=== PATIENT | male | born 1965 | race Caucasian/White ===

== ENCOUNTER 2019-02-19 20:08 | Emergency (ER) | payer OTHER, BC ==
--- NOTE | 2019-02-19 20:21 | EDM.PDOC ---
ED HPI GENERAL MEDICAL PROBLEM - General Chief Complaint: Genitourinary Problem Stated Complaint: DX WITH KIDNEY STONES Time Seen by Provider: 02/19/19 20:19 - History of Present Illness INITIAL COMMENTS - FREE TEXT/NARRATIVE: 53-year-old male presents emergency room with back pain thought to be a kidney stone. Patient was seen twice in the emergency room in [place] yesterday with this pain he had images done CAT scans 2 that showed kidney stones in the renal pelvis none in the ureters no evidence of hydronephrosis. The patient has really quite severe pain and is having difficulty getting comfortable. He's not had any nausea vomiting no fevers chills no burning or frequency with urination. He's had no loss of bowel or bladder control no radicular symptoms. Left Flank Pain Score (Numeric/FACES): 10 - Related Data Allergies Allergy/AdvReac Type Severity Reaction Status Date / Time tetracycline Allergy Cannot Verified 02/19/19 20:21 Remember Home Meds: Home Meds Cyclobenzaprine [Flexeril] 5 mg PO TID 02/19/19 [History] Hydrocodone/Acetaminophen [Hydrocodon-Acetaminophen 5-325] 1 tab PO Q6H PRN 04/02 [History] Omeprazole Magnesium [Prilosec Otc] 20 mg PO DAILY 02/19/19 [History] traMADol [Ultram] 50 mg PO Q6H 02/19/19 [History] Acetaminophen/HYDROcodone [[place] 325-5 MG] 1 - 2 tab PO Q6H #30 tablet 02/20/19 [Rx] Naproxen [Naprosyn] 500 mg PO Q12H #30 tablet 02/20/19 [Rx] ED ROS GENERAL - Review of Systems Review Of Systems: See Below Constitutional: Reports: No Symptoms Respiratory: Reports: No Symptoms Cardiovascular: Reports: No Symptoms Endocrine: Reports: No Symptoms GI/Abdominal: Denies: Constipation, Diarrhea, Nausea, Vomiting : Denies: Frequency, Hematuria, Urgency, Urinary Retention Musculoskeletal: Reports: Back Pain Skin: Reports: No Symptoms Neurological: Reports: No Symptoms ED EXAM, GI/ABD - Physical Exam Exam: See Below Exam Limited By: No Limitations General Appearance: Alert, No Apparent Distress Head: Atraumatic, Normocephalic Neck: Normal Inspection, Supple, Non-Tender, Full Range of Motion Respiratory/Chest: No Respiratory Distress, Lungs Clear, Normal Breath Sounds Cardiovascular: Regular Rate, Rhythm, No Edema, No Murmur GI/Abdominal Exam: Normal Bowel Sounds, Soft, Non-Tender, No Distention, Other ( Abdominal exam is entirely normal. This can happen with kidney stones to). No: Guarding, Rigid, Rebound, Tender Back Exam: Normal Inspection, Muscle Spasm (In his left low back at the lower most portion of the lumbar region he has a couple of trigger points palpable this is extending from L5 area 3 trigger points have been identified). No: CVA Tenderness (L), CVA Tenderness (R), Vertebral Tenderness Course - Vital Signs Last Recorded V/S: Last Vital Signs Temp 36.9 C 02/19/19 20:20 Pulse 97 02/19/19 20:20 Resp 20 02/19/19 20:20 BP 168/131 H 02/19/19 20:20 Pulse Ox 94 L 02/19/19 20:20 - Orders/Labs/Meds Orders: Active Orders 24 hr Category Date Time Status Lactated Ringers [Ringers, Lactated] 1,000 ml Med 02/19/19 21:00 Active IV ASDIRECTED Medication Orders Lactated Ringer's (Ringers, Lactated) 1,000 mls @ 125 mls/hr IV ASDIRECTED SCOT Last Admin: 02/19/19 21:02 Dose: 125 mls/hr Labs: Laboratory Tests 02/19/19 02/19/19 02/19/19 Range/Units 20:20 20:20 21:46 WBC 6.61 (4.23-9.07) K/mm3 RBC 5.84 (4.63-6.08) M/mm3 Hgb 16.4 (13.7-17.5) gm/L Hct 48.4 (40.1-51.0) % MCV 82.9 (79.0-92.2) fl MCH 28.1 (25.7-32.2) pg MCHC 33.9 (32.2-35.5) g/dl RDW Std Deviation 41.9 (35.1-43.9) fL Plt Count 288 (163-337) K/mm3 MPV 10.0 (9.4-12.3) fl Neutrophils % (Manual) 55 (40-60) % Band Neutrophils % 2 (0-10) % Lymphocytes % (Manual) 39 (20-40) % Atypical Lymphs % 0 % Monocytes % (Manual) 3 (2-10) % Eosinophils % (Manual) 1 (0.8-7.0) % Basophils % (Manual) 0 L (0.2-1.2) Platelet Estimate Adequate RBC Morph Comment Normal Sodium 142 (136-145) mEq/L Potassium 4.0 (3.5-5.1) mEq/L Chloride 105 (98-107) mEq/L Carbon Dioxide 22 (21-32) mEq/L Anion Gap 19.0 H (5-15) BUN 17 (7-18) mg/dL Creatinine 1.1 (0.7-1.3) mg/dL Est Cr Clr Drug Dosing 82.03 mL/min Estimated GFR (MDRD) > 60 (>60) mL/min BUN/Creatinine Ratio 15.5 (14-18) Glucose 97 (74-106) mg/dL Calcium 9.2 (8.5-10.1) mg/dL Total Bilirubin 0.3 (0.2-1.0) mg/dL AST 40 H (15-37) U/L ALT 41 (16-63) U/L Alkaline Phosphatase 82 (46-116) U/L Total Protein 7.9 (6.4-8.2) g/dl Albumin 4.4 (3.4-5.0) g/dl Globulin 3.5 gm/dL Albumin/Globulin Ratio 1.3 (1-2) Urine Color Yellow (Yellow) Urine Appearance Clear (Clear) Urine pH 6.5 (5.0-8.0) Ur Specific [place] 1.025 (1.005-1.030) Urine Protein Negative (Negative) Urine Glucose (UA) Negative (Negative) Urine Ketones Negative (Negative) Urine Occult Blood Negative (Negative) Urine Nitrite Negative (Negative) Urine Bilirubin Negative (Negative) Urine Urobilinogen 1.0 (0.2-1.0) Ur Leukocyte Esterase Negative (Negative) Urine RBC 0-5 (0-5) /hpf Urine WBC 0-5 (0-5) /hpf Ur Squamous Epith Cells 0-5 (0-5) /hpf Urine Bacteria Occasional (FEW) /hpf Urine Mucus Few (FEW) /hpf Meds: Medications Generic Name Dose Route Start Last Admin Trade Name Freq PRN Reason Stop Dose Admin Lactated Ringer's 1,000 mls @ 125 mls/hr 02/19/19 21:00 02/19/19 21:02 Ringers, Lactated IV 125 mls/hr ASDIRECTED SCOT Administration Discontinued Medications Generic Name Dose Route Start Last Admin Trade Name Freq PRN Reason Stop Dose Admin Fentanyl 50 mcg 02/19/19 20:47 02/19/19 20:58 Sublimaze IVPUSH 02/19/19 20:48 50 mcg ONETIME ONE Administration Fentanyl 50 mcg 02/19/19 21:18 02/19/19 21:24 Sublimaze IVPUSH 02/19/19 21:19 50 mcg ONETIME ONE Administration Ketorolac Tromethamine 15 mg 02/19/19 22:18 02/19/19 22:22 Toradol IVPUSH 02/19/19 22:19 15 mg ONETIME ONE Administration Lidocaine HCl Confirm 02/19/19 23:45 02/19/19 23:54 Xylocaine 1% Administered 02/19/19 23:46 Not Given Dose 20 ml .ROUTE [facility] ONE Lidocaine HCl 20 ml 02/19/19 23:47 02/19/19 23:53 Xylocaine 1% INJECT 02/19/19 23:48 20 ml ONETIME ONE Administration Triamcinolone Acetonide 20 mg 02/19/19 23:01 02/19/19 23:50 Kenalog-40 INJECT 02/19/19 23:02 20 mg ONETIME ONE Administration Triamcinolone Acetonide 20 mg 02/19/19 23:55 02/19/19 23:59 Kenalog-40 INJECT 02/19/19 23:56 Not Given ONETIME ONE - Re-Assessments/Exams Free Text/Narrative Re-Assessment/Exam: 02/20/19 00:56 Laboratory evaluation here has been unrevealing the patient did receive a liter of fluid I did receive his records from [facility] he said to CTs an unenhanced CT had a contrast CT both of which were unrevealing for any acute cause of his pain he does have a few kidney stones noted in the kidneys no stones in the ureters no hydronephrosis. The patient is post [place] on vacation in 2 days and this pain is causing issues for him I did discuss the risks and benefits of trigger point injection and made no promises or guarantees that it would help. He wished for me to attempt this. I used 15 mL of 1% lidocaine without epinephrine 1/2 mL of Kenalog 40 mg/mL and injected with 3 trigger points. At rest the patient was at least 50% better after the injections and this continued to improve over time. The patient will be discharged home as he is getting ready to leave the country I did refill his [place] #30 one or 2 every 6 hours only if needed. He should not mix with Flexeril if at all possible. I gave him prescription for Naprosyn 500 mg #30 to be taken twice daily and explained to him in no uncertain terms the cornerstone of his therapy should be the Naprosyn and the Flexeril and he should try and minimize the use of the Flexeril only at night if possible he and his did verbalize understanding. Departure - Departure Time of Disposition: 00:37 Disposition: Home, Self-Care 01 Clinical Impression: Low back strain - Discharge Information Prescriptions: Acetaminophen/HYDROcodone [[place] 325-5 MG] 1 - 2 tab PO Q6H #30 tablet Naproxen [Naprosyn] 500 mg PO Q12H #30 tablet Referrals: Gloria Ford MD [Primary Care Provider] - Forms: ED Department Discharge Additional Instructions: Return to the emergency room with any questions problems worsening symptoms. Try your Flexeril, the muscle relaxant and the Naprosyn for most your control of pain use the hydrocodone if you need to. Use caution with taking this with the Flexeril, the muscle relaxant as you can get quite a bit of sedation with the combination. Stay very well-hydrated. Do not drive within 12 hours of using the hydrocodone or the muscle relaxant. - My Orders Last 24 Hours: My Active Orders 02/19/19 21:00 Lactated Ringers [Ringers, Lactated] 1,000 ml IV ASDIRECTED - Assessment/Plan Last 24 Hours: My Active Orders 02/19/19 21:00 Lactated Ringers [Ringers, Lactated] 1,000 ml IV ASDIRECTED
[2019-02-19] MEDS ORDERED: fentaNYL 100 MCG/2 ML SDV IVPUSH ONE ×2 (20:47→21:18)
[2019-02-19] MEDS ORDERED: Lactated Ringers 1,000 ML IV SCH (21:00)
[2019-02-19] MEDS ORDERED: Ketorolac 15 MG/ML SDV IVPUSH ONE (22:18)
[2019-02-19] MEDS ORDERED: Triamcinolone Acetonide 40 MG/ML 1 ML MDV INJECT ONE ×2 (23:01→23:55)
[2019-02-19] MEDS ORDERED: Lidocaine 1% 10 ML MDV ONE (23:45)
[2019-02-19] MEDS ORDERED: Lidocaine 1% 10 ML MDV INJECT ONE (23:47)
== END 2019-02-20 01:00 | disposition home or self-care (01) ==
LOC: JD.ED 20:08
DX: S39.012A Strain of muscle, fascia and tendon of lower back, initial encounter (principal); Z88.1 Allergy status to other antibiotic agents; Z79.899 Other long term (current) drug therapy; X58.XXXA Exposure to other specified factors, initial encounter
CPT/HCPCS: 36415; 80053; 81001; 85007; 85027; 96361; 96372; 96374; 96375; 99284; J1885; J2001; J3010; J3301; J7120